=== PATIENT | male | born 2000 | race Caucasian/White ===

== ENCOUNTER 2024-01-30 23:07 | Emergency (ER) | payer BC ==
[~2024-01-30] VITALS: Ht 177.8 cm; Wt 73.0 kg
[2024-01-30 23:08] VITALS: TEMP 98.1; O2SAT 100
[2024-01-31 00:13] LABS: BASOPHILS % 0.3 % (0.0-2.0); EOSINOPHILS % 0.4 % (0.0-5.0); HEMATOCRIT. 40.4 % (42.0-52.0); HEMOGLOBIN. 13.9 g/dL (14.0-18.0); LYMPHOCYTES % 9.7 % (20.0-50.0); MEAN CORPUSCULAR HEMOGLOBIN 31.2 pg (28.0-32.0); MEAN CORPUSCULAR HGB CONC 34.3 g/dL (31.0-37.0); MEAN PLATELET VOLUME 8.1 fl (7.4-10.4); NEUTROPHILS % 83.6 % (40.0-76.0); PLATELET 306 x1000/uL (130-400); RED BLOOD CELL COUNT 4.44 mill/uL (4.7-6.1); RED CELL DISTRIBUTION WIDTH 13.1 % (11.6-14.6); WHITE BLOOD COUNT 15.3 x1000/uL (4.5-11.0)
[2024-01-31 00:28] LABS: CARBON DIOXIDE 23 mEq/L (21-32); CHLORIDE 103 mEq/L (98-107); POTASSIUM 3.7 mEq/L (3.5-5.1); SODIUM 136 mEq/L (136-145)
[2024-01-31 00:29] LABS: CALCIUM 10.9 mg/dL (8.7-10.4)
[2024-01-31 00:34] LABS: GLUCOSE 108 mg/dL (70-105); UREA NITROGEN BLOOD 14 mg/dL (9-23)
[2024-01-31 00:38] LABS: TROPONIN I HIGH SENSITIVITY < 4 ng/L (3.0-53)
[2024-01-31] MEDS: SODIUM CHLORIDE 0.9% 1,000 ML IV ONE (01:06)
[2024-01-31 01:44] VITALS: BP 122/63; PULSE 77; RESP 15
== END 2024-01-31 01:51 | disposition home or self-care (01) ==
LOC: ER 23:07
DX: R55 Syncope and collapse (principal); F12.90 Cannabis use, unspecified, uncomplicated; J45.909 Unspecified asthma, uncomplicated; Z88.0 Allergy status to penicillin; Z88.8 Allergy status to other drugs, medicaments and biological substances
CPT/HCPCS: 99284; 80048; 85025; 84484; 36415; 93005; 96360; J7030